=== PATIENT | female | born 2000 | race Caucasian/White ===

== ENCOUNTER 2024-09-24 19:30 | Outpatient (REF) | payer OTHER, SELFPAY ==
[2024-09-26 12:16] LABS: Chlamydia Result Negative (Negative); GC Result Negative (Negative)
== END 2024-09-24 19:31 | disposition home or self-care (01) ==
LOC: NCHCN 19:30
PROVIDERS: Visit Provider Physician Assistant
DX: N76.0 Acute vaginitis (principal); N39.0 Urinary tract infection, site not specified
CPT/HCPCS: 87077; 87491; 87591; 87086; 87186; 87480; 87510; 87660